=== PATIENT | male | born 1990 | race Hispanic/Latino ===

== ENCOUNTER 2017-11-11 21:35 | Emergency (ER) | payer SELFPAY ==
[2017-11-11] MEDS ORDERED: PERCOCET 5/325 ONE (22:31)
[2017-11-11] MEDS ORDERED: PERCOCET 5/325 PO ONE (22:46)
--- NOTE | 2017-11-11 23:00 | Emergency Department Report ---
ED Lower Extremity HPI - General Chief Complaint: Extremity Injury, Lower Stated Complaint: LEFT FOOT PAIN Time Seen by Provider: 11/11/17 22:39 Source: patient, family, EMS Mode of arrival: Ambulatory Limitations: No Limitations - History of Present Illness Initial Comments: She reports that he injured his left ankle when he was walking he said that he rolled his ankle. Patient had fractured the same ankle in 2016 and has surgery 3. He also had surgery in 2017. Patient says his balance is off and he has multiple hardware in his ankle and his pain is 10 out of 10 aching and throbbing. [id number] pain medication did not help. Patient said he has a orthopedic doctor in after but he is currently living in this area with his girlfriend and family member and he would like to be referred to orthopedic doctor in this area. Pain is worse with movement better with rest. Complaint: ankle injury -: This evening Injury: Knee: Left (pain and swelling after injury) Type of Injury: inversion Place: street/outdoors Severity: severe Severity scale (0 -10): 10 Improves With: immobilization, rest Worsens With: weight bearing, movement, palpation Context: walking (and rolled his ankle) Associated Symptoms: swelling, unable to bear weight. denies: snap/pop sensation, numbness, tingling Treatments Prior to Arrival: splint - Related Data Previous Rx's Medication Instructions Recorded Last Taken Type Acetaminophen/Codeine [Tylenol 1 tab PO Q6H PRN #12 tab 11/12/17 Unknown Rx /Codeine # 3 tab] Ibuprofen [Motrin] 600 mg PO Q8H PRN #15 tablet 11/12/17 Unknown Rx Allergies Allergy/AdvReac Type Severity Reaction Status Date / Time No Known Allergies Allergy Verified 11/11/17 23:11 ED Review of Systems ROS: Stated complaint: LEFT FOOT PAIN Other details as noted in HPI Comment: All other systems reviewed and negative Constitutional: no symptoms reported Respiratory: no symptoms reported Cardiovascular: denies: chest pain, palpitations, dyspnea on exertion, edema, syncope, paroxysmal nocturnal dyspnea Gastrointestinal: denies: abdominal pain, nausea, vomiting Musculoskeletal: joint swelling, arthralgia. denies: back pain, myalgia Skin: denies: rash Neurological: abnormal gait (left lower extremity). denies: headache, weakness , numbness, paresthesias, confusion, vertigo ED Past Medical Hx - Past Medical History Previous Medical History?: Yes Additional medical history: Ankle fracture - Surgical History Past Surgical History?: Yes Additional Surgical History: recurrent left ankle fx-complicated 11/2015, 11/2016 - Family History Family history: no significant - Social History Smoking Status: Current Every Day Smoker Substance Use Type: Alcohol - Medications Home Medications: Home Medications Medication Instructions Recorded Confirmed Last Taken Type Acetaminophen/Codeine [Tylenol 1 tab PO Q6H PRN #12 tab 11/12/17 Unknown Rx /Codeine # 3 tab] Ibuprofen [Motrin] 600 mg PO Q8H PRN #15 tablet 11/12/17 Unknown Rx ED Physical Exam - General Limitations: No Limitations General appearance: alert, in no apparent distress - Head Head exam: Present: atraumatic, normocephalic, normal inspection - Eye Eye exam: Present: normal appearance, PERRL, EOMI Pupils: Present: normal accommodation - ENT ENT exam: Present: normal exam, normal orophraynx, mucous membranes moist - Neck Neck exam: Present: normal inspection, full ROM, other (no C-spine tenderness). Absent: tenderness, meningismus, lymphadenopathy - Respiratory Respiratory exam: Present: normal lung sounds bilaterally. Absent: respiratory distress, chest wall tenderness - Cardiovascular Cardiovascular Exam: Present: normal rhythm, tachycardia, normal heart sounds - Extremities Exam Extremities exam: Present: tenderness, normal capillary refill, joint swelling, other (no clubbing, cyanosis or edema. Positive pulses all extremities. Positive swelling to left outer ankle. No neurovascular compromise.). Absent: normal inspection, full ROM, pedal edema, calf tenderness - Back Exam Back exam: Present: normal inspection, full ROM. Absent: tenderness, CVA tenderness (R), CVA tenderness (L), muscle spasm, paraspinal tenderness, vertebral tenderness, rash noted - Neurological Exam Neurological exam: Present: alert, altered, abnormal gait (abnormal gait due to multiple injuries and surgery to left ankle.), motor sensory deficit (patient with 4/5 strength in left ankle. Normal sensation), reflexes normal - Psychiatric Psychiatric exam: Present: normal affect, normal mood - Skin Skin exam: Present: warm, dry, intact, normal color, other (a short with scars to left lower extremity from previous surgery.) ED Course Vital Signs 11/11/17 11/11/17 11/11/17 21:35 21:51 22:59 Temperature 98.8 F 98.8 F Pulse Rate 105 H 96 H Respiratory 18 18 18 Rate Blood Pressure 136/93 136/93 Blood Pressure [Right] O2 Sat by Pulse 97 99 Oximetry 11/11/17 11/12/17 23:32 02:12 Temperature Pulse Rate 82 Respiratory 18 18 Rate Blood Pressure Blood Pressure 131/89 [Right] O2 Sat by Pulse 99 Oximetry - Reevaluation(s) Reevaluation #1: 11/12/17 01:24 She given Percocet 5/325 mg 2 tablet by mouth which did not help his pain so he was given Dilaudid 1 mg IM and Zofran 8 mg ODT. He now voiced relief of pain down to 10/07 - Orthopedic Splinting/Casting Injury #1 Side: left Lower Extremity Injury Location: ankle Lower Extremity Immobilizer: stirrup splint Other Orthopedic Equipment: crutches Additional Comments: Patient with 2+, bounding pulse to both feet, no neurovascular compromise ED Lower Extremity MDM - Radiology Data Radiology results: report reviewed X-ray of ankle 3 views left, reveals there is evidence of previous trauma with osseus remodeling and previous internal fixation device. No acute fracture is identified. Mild diffuse soft tissue swelling. CT scan of left ankle and foot without contrast showed no acute fracture or dislocation. Mild soft tissue swelling, mild arthritis. Previous internal fixation with artifact from plate and multiple screws in the distal fibula and distal tibia fibula joint. - Medical Decision Making ED course: Patient here with his significant other reports that he was walking and rolled is left ankle one hour prior to coming to the emergency room. He is complaining of pain and swelling to left ankle. Patient had multiple procedure due to recurrent injuries and previous fracture to left ankle. He has hardware to distal tibia and fibula. Patient said he gets unsteady on his feet and tends to reinjure his ankle at times. Physical findings for tenderness to palpate the left ankle with swelling extending down to left foot. Patient with good neurovascular status. X-ray findings reported patient with soft tissue swelling without any acute fracture or dislocation on hardware are intact. CT scan of left ankle and foot done and showed similar findings as x-ray. Please refer to radiology section for details on CT scan and x-ray result. Please refer to his procedure note for details and splinting. I discussed the patient x-ray results and also CT scan result. Patient was given Percocet 5/325 2 tablets by mouth emergency room which did not relieve his pain therefore he was given Dilaudid 1 mg IM and Zofran 8 mg ODT which he said his pain was better. Patient discharged home with significant other with prescription for Tylenol 3 and Motrin and to follow up with orthopedic doctor. He was on the side a discharge diagnosis and treatment plan. Critical care attestation.: If time is entered above; I have spent that time in minutes in the direct care of this critically ill patient, excluding procedure time. ED Disposition Clinical Impression: Sprain of ankle, left Qualifiers: Encounter type: initial encounter Involved ligament of ankle: unspecified ligament Qualified Code(s): S93.402A - Sprain of unspecified ligament of left ankle, initial encounter Left ankle pain Qualifiers: Chronicity: acute Qualified Code(s): M25.572 - Pain in left ankle and joints of left foot Injury of left ankle Qualifiers: Encounter type: initial encounter Qualified Code(s): S99.912A - Unspecified injury of left ankle, initial encounter Disposition: DC- TO HOME OR SELFCARE Is pt being admited?: No Does the pt Need Aspirin: No Condition: Stable Instructions: Ankle Sprain (ED), Osteoarthritis (ED), Ankle Stirrup Splint (ED) , Arthralgia (ED), Ankle Exercises (GEN), RICE Therapy (ED) Additional Instructions: Please follow up with primary care as recommended Increase fluid intake Take medication as prescribed but please do not drive or operate heavy machinery while taking Tylenol No. 3 as this medication causes drowsiness. please do not drive or operate heavy machinery while taking these medications. Referred to discharge instruction on splint care. Referred to discharge instruction in Rice therapy. follow-up with orthopedic doctor as instructed. Prescriptions: Acetaminophen/Codeine [Tylenol /Codeine # 3 tab] 1 tab PO Q6H PRN #12 tab PRN Reason: severe pain Ibuprofen [Motrin] 600 mg PO Q8H PRN #15 tablet PRN Reason: Pain Referrals: LUIS E BOLANOS MD [Staff Physician] - 2-3 Days [facility] [Outside] - 2-3 Days Forms: Work/School Release Form(ED)
[2017-11-11] MEDS ORDERED: DILAUDID IM ONE (23:01)
[2017-11-11] MEDS ORDERED: ZOFRAN ODT PO ONE (23:01)
--- NOTE | 2017-11-11 23:27 | XRay Report ---
FINAL REPORT PROCEDURE: XR ANKLE 3+V LT TECHNIQUE: LEFT ankle radiographs, AP, lateral, and oblique views. CPT 21893 HISTORY: pain and swelling LT ANKLE injury COMPARISON: No prior studies are available for comparison. FINDINGS: No acute fracture or dislocation. There is osseous remodeling from previous trauma. There is a plate with 5 screws along the distal fibula. There are 2 screws traversing the distal tibia fibula articulation. Findings consistent with an advanced arthritic process post trauma. Mild soft tissue swelling around the ankle is noted. IMPRESSION: There is evidence of previous trauma with osseous remodeling and previous internal fixation as discussed. No acute fracture is identified. Mild diffuse soft tissue swelling..
--- NOTE | 2017-11-12 00:08 | Cat Scan Report ---
FINAL REPORT PROCEDURE: CT LOWER EXTREMITY LT WO CON TECHNIQUE: Computerized axial tomography of the LEFT ankle was performed without contrast. HISTORY: pain/sweeling, injury lt ankle/foot COMPARISON: No prior studies are available for comparison. FINDINGS: Bony structures including marrow spaces: There is osseous remodeling of the distal tibia and fibula from previous traumatic injury. There has been internal fixation with a plate and multiple screws stabilizing the distal fibula. Two screws stabilize the distal tibiofibular joint. No acute fracture is identified on the examination. Neurovascular structures: Normal. Soft tissues: Mild diffuse soft tissue swelling is identified. No formed abscess or fluid collection. Joint space: There is mild narrowing of the joint spaces. IMPRESSION: No acute fracture dislocation. There is osseous remodeling from previous trauma the distal tibia and fibula. Previous internal fixation with artifact from a plate and multiple screws in the distal fibular and distal tibial fibular joint. Mild diffuse soft tissue swelling. Mild arthritis.
[2017-11-12 02:12] VITALS: BP 131/89
== END 2017-11-12 02:13 | disposition home or self-care (01) ==
LOC: ED 21:35
DX: S93.402A Sprain of unspecified ligament of left ankle, initial encounter (principal); F17.200 Nicotine dependence, unspecified, uncomplicated; W22.8XXA Striking against or struck by other objects, initial encounter; Y93.01 Activity, walking, marching and hiking; Y99.8 Other external cause status; Y92.410 Unspecified street and highway as the place of occurrence of the external cause
CPT/HCPCS: 29515; 73610; 73700; 96372; 99284; J1170; Q0162